=== PATIENT | female | born 1955 | race Caucasian/White ===

== ENCOUNTER → 2019-04-05 | Outpatient (CLI) | payer MEDICARE, SELFPAY | PROVIDERS: PCP Internal Medicine; Visit Provider Internal Medicine | DX: R60.0 Localized edema (principal); Z79.899 Other long term (current) drug therapy | CPT/HCPCS: 85025; 36415; 80048; 83880; 71046 ==

== ENCOUNTER 2019-07-10 15:31 | Outpatient (RCR) | payer MEDICARE, SELFPAY ==
[2019-07-10 17:01] LABS: Blood Urea Nitrogen 16 mg/dL (7-17); Calcium 8.6 mg/dL (8.4-10.2); Carbon Dioxide 25 mmol/L (22-30); Chloride 103 mmol/L (98-107); Estimated Glomerular Filt Rate > 60; Glucose 173 mg/dL (65-105); Phosphorus 3.4 mg/dL (2.5-4.5); Potassium 4.7 mmol/L (3.4-5.0); Sodium 137 mmol/L (137-145)
[2019-07-10 17:12] LABS: Parathyroid Intact 147.2 pg/mL (7.5-53.5)
[2019-07-10 17:18] LABS: Vitamin D 25 Hydroxy 70.1 ng/mL
[2019-07-13 04:20] LABS: Ionized Calcium 4.8 mg/dL (4.8-5.6)
[2019-07-14 08:05] LABS: Calcium/Creatinine Ratio, Ur 14 mg/g creat (10-320); Urine Calcium, Random 1.4 mg/dL (***); Urine Creatinine, Random 100 mg/dL (20-275)
== END 2019-10-08 23:59 | disposition home or self-care (01) ==
LOC: ANHWCLAB 15:31
PROVIDERS: PCP Internal Medicine; Visit Provider Internal Medicine Endocrinology, Diabetes & Metabolism
DX: E11.69 Type 2 diabetes mellitus with other specified complication (principal); E04.1 Nontoxic single thyroid nodule; E21.3 Hyperparathyroidism, unspecified
CPT/HCPCS: 36415; 80069; 82306; 82310; 82330; 82570; 83970

== ENCOUNTER 2019-07-16 07:43 | Outpatient (CLI) | payer MEDICARE, SELFPAY ==
--- NOTE | ~2019-07-16 | US_ITS ---
EXAMINATION: US thyroid DATE: 07/16/2019 08:14 INDICATION: Thyroid nodule. Hypothyroidism. TECHNIQUE: Multiple ultrasound images of the thyroid were obtained. COMPARISON: Ultrasound 04/06/2018 FINDINGS: The right thyroid lobe measures 4.6 x 2.2 x 1.6 cm. The left thyroid lobe measures 3.8 x 1.4 x 1.3 c m. The thyroid is hypervascular. In the right thyroid lobe, there is a 7 mm mixed solid and cystic, hypoechoic, kegxu-zibs-xmpt nodule with ill-defined margin without echogenic foci (TI-RADS TR3). In t he right thyroid lobe, there is an 11 mm solid, hypoechoic, xsxwa-qutv-qntz nodule with ill-defined m argin without echogenic foci (TR4). In the right thyroid lobe, there is a 6 mm almost completely cyst ic nodule (TR1). In the left thyroid lobe, there is a 5 mm solid, hypoechoic, lbqsk-iuwv-xxyk nodule with ill-defined margin with peripheral calcifications (TR4). IMPRESSION: 1. Thyroid nodules. Thyroid ultrasound is recommended in one year. Reviewed, dictated and finalized at location A. D DYNAMICIST
== END 2019-07-16 07:44 | disposition home or self-care (01) ==
PROVIDERS: PCP Internal Medicine; Visit Provider Internal Medicine Endocrinology, Diabetes & Metabolism
DX: E11.69 Type 2 diabetes mellitus with other specified complication (principal); E21.3 Hyperparathyroidism, unspecified; E04.2 Nontoxic multinodular goiter
CPT/HCPCS: 76536

== ENCOUNTER 2019-09-18 13:29 | Outpatient (CLI) | payer MEDICARE, SELFPAY ==
[2019-09-18 14:02] LABS: Basophils Percent Auto 0.6 % (0.2-1.2); Eosinophils Percent Auto 0.8 % (0-4.4); Hematocrit 32.2 % (37.0-47.0); Hemoglobin 10.4 g/dL (12.0-15.0); Immature Granulocyte Absolute 0.03 K/mm3 (0.00-0.031); Immature Granulocyte Percent A 0.6 % (0-0.5); Lymphocytes Absolute Auto 1.33 K/mm3 (0.9-3.2); Lymphocytes Percent Auto 25.8 % (18.3-44.2); Mean Corpuscular HGB Conc 32.3 g/dl (32-36); Mean Corpuscular Hemoglobin 29.2 pg (26-34); Mean Corpuscular Volume 90.4 fl (80-100); Monocytes Absolute Auto 0.4 K/mm3 (0.1-0.6); Monocytes Percent Auto 6.8 % (2.6-8.5); Neutrophils Absolute Auto 3.4 K/mm3 (1.3-6.7); Neutrophils Percent Auto 65.4 % (45.5-73.1); Platelet Count Result 273 k/mm3 (150-375); Red Blood Count 3.56 M/mm3 (4.2-5.4); Red Cell Distribution Width 13.8 % (11.5-14.5); White Blood Count 5.2 K/mm3 (4.5-10.0)
[2019-09-18 14:09] LABS: Alanine Aminotransferase 94 U/L (4-35); Albumin Level 3.6 g/dL (3.5-5.1); Alkaline Phosphatase 98 U/L (38-126); Aspartate Amino Transferase 56 U/L (14-36); Bilirubin,Total 0.3 mg/dL (0.2-1.3); Blood Urea Nitrogen 41 mg/dL (7-17); Calcium 7.9 mg/dL (8.4-10.2); Carbon Dioxide 25 mmol/L (22-30); Chloride 108 mmol/L (98-107); Estimated Glomerular Filt Rate 32; Glucose 150 mg/dL (65-105); Potassium 4.6 mmol/L (3.4-5.0); Sodium 138 mmol/L (137-145)
== END 2019-09-18 13:30 | disposition home or self-care (01) ==
LOC: ANHLAB 13:31
PROVIDERS: PCP Internal Medicine; Visit Provider Internal Medicine
DX: Z79.899 Other long term (current) drug therapy (principal)
CPT/HCPCS: 36415; 80053; 85025

== ENCOUNTER 2019-09-20 09:50 | Outpatient (CLI) | payer MEDICARE, SELFPAY ==
[2019-09-20 10:28] LABS: Add Urine Microscopic? YES; Appearance Urine Turbid (Clear); Bacteria Urine Trace /hpf; Bilirubin Urine Negative (Negative); Blood Urine 1+ (Negative); Color Urine Yellow (Yellow); Glucose Urine UA 1+ mg/dL (Negative); Ketones Urine Negative (Negative); Leukocyte Esterase Ur 3+ LEU/UL (Negative); Nitrate Urine Negative (Negative); Protein Urine 2+ mg/dL (Negative); RBC Urine 21-50 /hpf (0-2); Specific Grav Ur 1.014 (1.001-1.035); Squamous Epithelial Cell Urine Few /hpf (Few); Urobilinogen Urine Negative mg/dL (<2.0); WBC Clumps Urine Present /HPF; WBC Urine >75 /hpf
[2019-09-20 10:33] LABS: Blood Urea Nitrogen 37 mg/dL (7-17); Calcium 8.4 mg/dL (8.4-10.2); Carbon Dioxide 26 mmol/L (22-30); Chloride 108 mmol/L (98-107); Estimated Glomerular Filt Rate 35; Glucose 212 mg/dL (65-105); Sodium 138 mmol/L (137-145)
== END 2019-09-20 09:51 | disposition home or self-care (01) ==
LOC: ANHLAB 09:56
PROVIDERS: PCP Internal Medicine; Visit Provider Internal Medicine
DX: E11.9 Type 2 diabetes mellitus without complications (principal); Z79.899 Other long term (current) drug therapy; R82.90 Unspecified abnormal findings in urine
CPT/HCPCS: 36415; 80048; 81001; 87086; 87088